=== PATIENT | female | born 1995 | race Caucasian/White ===

== ENCOUNTER 2023-09-19 07:42 | Emergency (ER) | payer BC, SELFPAY ==
--- NOTE | ~2023-09-19 | CT_ITS ---
EXAMINATION: CT abdomen pelvis w con DATE: 09/19/2023 08:57 INDICATION: Right lower quadrant pain, nausea, vomiting and diarrhea. TECHNIQUE: Computed tomography (CT) of the abdomen and pelvis was performed with 100 mL Omnipaque-350 intravenous contrast. Automated exposure control and iterative reconstruction technique were employe d. The dose-length product was 400.53 mGy-cm. COMPARISON: None FINDINGS: Mild discoid atelectasis in the left lower lobe. Heart size is normal. No pericardial or pleural effu siva. 2.2 cm low-attenuation lesion with globular peripheral regions of enhancement in the left hepat ic lobe consistent with and statistically most likely to represent a hemangioma. There are a couple a dditional subcentimeter low-attenuation right hepatic lesions also most likely representing hemangiom as. Gallbladder, spleen, pancreas, bilateral adrenal glands and kidneys are normal. Normal appendix. There is fluid in the proximal colon consistent with given history of diarrhea which is nonspecific. No bowel obstruction. Bladder is normal. The retroverted uterus is normal. Small low-attenuation like ly ovarian cysts/follicles at the bilateral adnexa, the largest on the right measuring 1.5 cm in maxi mal diameter. Small amount of likely physiologic free fluid in the cul-de-sac. No abscess or free int raperitoneal gas. No pathologically enlarged abdominal or pelvic lymphadenopathy. Bones are unremarka ble. IMPRESSION: 1. Fluid in the proximal colon consistent with nonspecific diarrhea. No other acute intra-abdominal/p elvic process with normal appendix. Reviewed, dictated and finalized at location A. IMPRESSION: 1. Fluid in the proximal colon consistent with nonspecific diarrhea. No other a cute intra-abdominal/pelvic process with normal appendix.
[2023-09-19 07:47] VITALS: BP 111/74; PULSE 74; RESP 18; TEMP 37.1; O2SAT 100
--- NOTE | 2023-09-19 08:08 | ED.ABDPAIN ---
HPI - Abdominal Pain General Chief Complaint: Abdominal Pain Stated Complaint: abdominal pain Time Seen by Provider: 09/19/23 07:47 Source: patient Mode of arrival: ambulatory Limitations: no limitations History of Present Illness HPI narrative: this is a 28-year-old female with no significant past medical history presents with severe pain diffuse location localizing to the periumbilical area and radiating to her right flank with nausea with no fever chills no chest pain or shortness. MD elicited complaint: abdominal pain Onset (ago): hour(s) Pain Consistency: constant Location: diffuse, periumbilical, R flank and suprapubic Severity: severe Pain scale (0-10): 8 Quality: aching Radiation: R flank Exacerbating factors: nothing Relieving factors: nothing Related Data Allergies Allergy/AdvReac Type Severity Reaction Status Date / Time No Known Allergies Allergy Verified 09/19/23 07:58 Review of Systems Review of Systems: All systems reviewed & are unremarkable except as noted in HPI and below PMFSH Past Medical History Medical History Patient denies medical problems Exam Const: General: no acute distress Nutritional Appearance: well nourished Orientation/consciousness: patient oriented x3 Chest: Chest palpation & inspection: normal inspection of the chest Resp: Effort & Inspection: normal respiratory effort Auscultation: clear to auscultation bilaterally Cardio: Rate: regular rate Rhythm: regular rhythm GI: GI Palp: Yes Soft to palpation and Yes Tenderness to palpation present (GI) Auscultation: normal bowel sounds : General: Yes Bladder palpation abnormal and Yes CVA tenderness Back/Spine/Pelvis: Back: CVA tenderness Skin: General skin exam: normal color Rashes: no rashes Neuro: General: patient oriented x3, moves all extremities and no meningeal signs Course Course Emergency Course: patient with abdominal pain started IV fluids and administered a dose of 30mg IV Toradol and Zofran, labs drawn and reviewed as well as urinalysis, CT scan of the abdomen pelvis were performed. Vital Signs Vital signs: Vital Signs Temperature 37.1 C 09/19/23 07:47 Pulse Rate 74 09/19/23 07:47 Respiratory Rate 18 09/19/23 07:47 Blood Pressure 111/74 09/19/23 07:47 Pulse Oximetry 100 09/19/23 07:47 Oxygen Delivery Room Air 04/13/24 07:47 Temperature 37.1 C 09/19/23 07:47 Pulse Rate 74 09/19/23 07:47 Respiratory Rate 18 09/19/23 07:47 Blood Pressure 111/74 09/19/23 07:47 Pulse Oximetry 100 09/19/23 07:47 Oxygen Delivery Room Air 09/19/23 07:47 Critical Care Time Critical Care Time Critical Care Time: No Discharge Plan Discharge Clinical Impression: Gastroenteritis UTI (urinary tract infection) Qualifiers: Urinary tract infection type: site unspecified Hematuria presence: without hematuria Qualified Code(s): N39.0 - Urinary tract infection, site not specified Patient Disposition: Home, Self-Care Condition: Stable Instructions: Antibiotic Form, Urinary Tract Infection in Women (ED), Clear Liquid Diet (ED), Gastroenteritis (ED) Additional Instructions: take medicine as prescribed and follow up with primary if symptoms persist or worsen. Prescriptions: New ondansetron 4 mg tablet,disintegrating 4 mg PO Q6H PRN (Reason: nausea and vomiting) Qty: 14 0RF nitrofurantoin monohyd/m-cryst [Macrobid] 100 mg capsule 100 mg PO Q12H 7 Days Qty: 14 0RF Rx Instructions: must administer with a meal/food Follow-up/Referrals: UNKNOWN,DOCTOR [Primary Care Provider] - Time of Disposition: 09:31
[2023-09-19] MEDS: ONDANSETRON INJ 4 MG/2 ML VIAL IV PUSH (08:15)
[2023-09-19] MEDS: KETOROLAC 30 MG/ML VIAL (*BKC) IV PUSH (08:15)
[2023-09-19] MEDS: SODIUM CHLORIDE 0.9% IV 1,000 ML 999 ML IV CONT (08:16)
[2023-09-19 08:20] LABS: Appearance Urine Clear (Clear); Basophils Absolute Auto 0.04 K/mm3 (0.00-0.10); Basophils Percent Auto 0.4 % (0.0-1.0); Bilirubin Urine Negative (Negative); Blood Urine 1+ (Negative); Color Urine Light Yellow (Yellow); Eosinophils Absolute Auto 0.13 K/mm3 (0.02-0.50); Eosinophils Percent Auto 1.3 % (1.0-6.0); Glucose Urine UA Negative (Negative); Hematocrit 42.1 % (35.0-49.0); Hemoglobin 13.8 g/dL (12.0-15.0); Immature Granulocyte Absolute 0.03 K/mm3 (0.00-0.00); Immature Granulocyte Percent A 0.3 % (0.0-0.0); Ketones Urine Negative (Negative); Leukocyte Esterase Ur Trace LEU/UL (Negative); Lymphocytes Absolute Auto 1.02 K/mm3 (1.10-4.50); Lymphocytes Percent Auto 10.5 % (18.0-42.0); Mean Corpuscular HGB Conc 32.8 g/dL (32-36); Mean Corpuscular Hemoglobin 29.9 pg (27.0-31.0); Mean Corpuscular Volume 91.3 fL (78.0-102.0); Mean Platelet Volume 10.6 fl (9.2-11.8); Monocytes Absolute Auto 0.63 K/mm3 (0.10-0.90); Monocytes Percent Auto 6.5 % (2.0-11.0); Neutrophils Absolute Auto 7.82 K/mm3 (1.70-7.20); Nitrate Urine Negative (Negative); Platelet Count Result 284 K/mm3 (150-420); Protein Urine Negative (Negative); Red Blood Count 4.61 M/mm3 (4.20-5.40); Specific Grav Ur 1.025 (1.010-1.020); Urobilinogen Urine 0.2 mg/dL (0.2-1.0); White Blood Count 9.7 K/mm3 (4.8-10.8)
[2023-09-19 08:25] LABS: Pregnancy On Board Control Positive; Urine Pregnancy Test Negative
[2023-09-19 08:36] LABS: Alanine Aminotransferase 28 U/L (14-59); Albumin Level 3.7 g/dL (3.4-5.0); Alkaline Phosphatase 121 U/L (46-116); Anion Gap 9 mmol/L (4-12); Aspartate Amino Transferase 25 U/L (15-37); Bilirubin,Total 0.4 mg/dL (0.00-1.00); Blood Urea Nitrogen 11 mg/dL (7-18); Calcium 8.8 mg/dL (8.5-10.1); Carbon Dioxide 28 mmol/L (21-32); Chloride 104 mmol/L (98-108); Estimated CRCL calculation 110 ml/min; Estimated Glomerular Filt Rate > 60; Glucose 87 mg/dL (70-99); Lipase 21 U/L (16-77); Osmolality Calculated 290 mOsm/kg (285-295); Potassium 4.2 mmol/L (3.5-5.1); Sodium 141 mmol/L (136-145)
[2023-09-19 08:38] LABS: Lactic Acid Reflex 0.7 mmol/L (0.4-2.0)
[2023-09-19 08:44] LABS: Add Urine Microscopic? YES; Bacteria Urine Trace /hpf; Squamous Epithelial Cell Urine Few /hpf (Few); WBC Urine 0-3 /hpf (0-3)
[2023-09-19 08:56] LABS: SARS-CoV-2 RNA PCR Negative (Negative)
[2023-09-19 08:57] LABS: Influenza A QL RT-PCR Negative (Negative); Influenza B QL RT-PCR Negative (Negative); RSV RNA, RT-PCR Negative (Negative)
[2023-09-19 09:41] VITALS: BP 110/72; PULSE 81; RESP 18; O2SAT 99
--- NOTE | 2023-09-25 12:49 | PC.NURSE ---
Final blood culture report: no growth after 5 days. no further action or treatment needed.
== END 2023-09-19 09:52 | disposition home or self-care (01) ==
PROVIDERS: Emergency Provider Emergency Medicine
DX: K52.9 Noninfective gastroenteritis and colitis, unspecified (principal); N39.0 Urinary tract infection, site not specified; Z20.822 Contact with and (suspected) exposure to COVID-19
CPT/HCPCS: 36415; 74177; 80053; 81001; 81025; 83605; 83690; 85025; 87040; 87637; 96361; 96374; 96375; 99284; J1885; J2405; J7030; Q9967

== ENCOUNTER 2024-09-09 17:18 | Emergency (ER) | payer OTHER, SELFPAY ==
--- NOTE | ~2024-09-09 | CT_ITS ---
History: Syncope. Left-sided headache PROCEDURE: CT head without contrast. COMPARISON: None TECHNIQUE: Axial imaging of the head performed from the skull base to the vertex without IV contrast. Sagittal a nd coronal reformations obtained. DLP: 605 mGy-cm FINDINGS: The ventricles are normal in size, shape and position. There is no mass, mass effect or midline shift. There is no abnormal extra-axial fluid collection or intracranial hemorrhage. Visualized paranasal sinuses are clear. The mastoid air cells are well aerated. No acute displaced fractures within the overlying cranium. Impression: No acute intracranial hemorrhage or suspicious mass effect. Reviewed, dictated and finalized at location A. Impression: No acute intracranial hemorrhage or suspicious mass effect.
[2024-09-09 17:18] VITALS: BP 127/92; PULSE 88; RESP 18; TEMP 36.3; O2SAT 99
--- NOTE | 2024-09-09 17:23 | ECG_ITS ---
Test Date: 2024-09-12 08:54:55 Measurements Intervals [place] Rate: P: AL: QRS: QRSD: T: QT: QTc: Interpretive Statements SINUS RHYTHM POSSIBLE LEFT ATRIAL ENLARGEMENT INCOMPLETE RIGHT BUNDLE BRANCH BLOCK BORDERLINE ECG Electronically Signed On 09-12-2024 09:14:44 CDT by Suleiman Haley D.O.
--- NOTE | 2024-09-09 17:23 | ED.SYNCOPE ---
HPI - Syncope General Chief Complaint: Syncope Stated Complaint: passed out Time Seen by Provider: 09/09/24 17:23 Source: patient Mode of arrival: ambulatory Limitations: no limitations History of Present Illness HPI narrative: patient is a 29-year-old female with syncopal episode after giving plasma today. She normally gives plasma once to twice a week but this time she had a syncopal episode a few hours after giving plasma. She was on her knees and collapsed. It was for brief few seconds. No other symptoms. Her pressure was a little bit low before giving plasma. She also had a tick bite a few weeks ago that she is monitoring and has not been treated at this point yet. possible hypoglycemia. complaint: loss of consciousness and collapsed Onset (ago): hour(s) ( Three) -: second(s) Description of event: other ( patient had given plasmapheresis and further had a collapse and syncopal episode) Prodromal symptoms: none Witnessed: No ( her was in the other room and came to check on her and brought her to the ER for further evaluation) Context: at rest Injuries sustained associated with event: none Current symptoms: none and back to baseline History: other ( 1st event) Treatments prior to arrival: none Related Data Allergies Allergy/AdvReac Type Severity Reaction Status Date / Time No Known Allergies Allergy Verified 09/09/24 17:26 Review of Systems Review of Systems: All systems reviewed & are unremarkable except as noted in HPI and below Constitutional: Constitutional: Reports no additional constitutional complaints Eyes: Eyes: Reports no additional eye complaints ENT: Reports system reviewed and no additional complaints, except as documented Cardiovascular: Cardiovascular: Reports no additional cardiovascular complaints Respiratory: Respiratory: Reports no additional respiratory complaints Gastrointestinal: Gastrointestinal: Reports no additional gastrointestinal complaints Genitourinary: Genitourinary: Reports no additional female genitourinary complaints Musculoskeletal: Musculoskeletal: Reports no additional musculoskeletal complaints Integumentary/Breasts: Skin/Breast: Reports system reviewed and no additional complaints, except as docu Neurologic: Reports system reviewed and no additional complaints, except as documented Psychiatric: Psychiatric: Reports no additional psychiatric complaints Endocrine: Endocrine: Reports no additional endocrine complaints Hematologic/Lymphatic: Hematologic/Lymphatic: Reports no additional hematologic/lymphatic complaints Allergic/Immunologic: Allergic/Immunologic: Reports no additional allergic/immunologic complaints PMFSH Past Medical History Medical History Patient denies medical problems Exam Const: General: healthy appearing Nutritional Appearance: well nourished Orientation/consciousness: patient oriented x3 Limitations: no limitations HENMT: Head: normal to inspection Ears: external ears normal Face/Nose/Sinus: Normal external nose present Eyes: Conjunctivae: conjunctivae normal Pupils: Equal, round and reactive pupils present EOM: EOMs intact bilaterally Neck: Neck: normal visual inspection Chest: Chest palpation & inspection: normal inspection of the chest Resp: Effort & Inspection: normal respiratory effort and not labored Auscultation: clear to auscultation bilaterally and no crackles Cardio: Rate: regular rate Rhythm: regular rhythm Heart sounds: no murmurs GI: Inspection: non-distended GI Palp: Yes Soft to palpation and No Tenderness to palpation present (GI) Auscultation: normal bowel sounds : General: Yes bladder normal to palpation Back/Spine/Pelvis: Back: no CVA tenderness Skin: General skin exam: normal color Rashes: rash noted Wounds: no wounds Other: left breast examined by myself and female nurse Yissel shows a small erythema circular area at the 4 o'clock position with a nodularity nidus from the tick; it does not have the typical Lyme disease appearance Neuro: General: patient oriented x3, moves all extremities, no meningeal signs, no focal motor deficits and CN's II-XI intact bilaterally Cranial nerves: Yes Nystagmus not present Speech: normal speech Gait exam (Neuro): Normal gait present Extrem: General: normal to inspection Psych: Mental Status: mental status grossly normal Affect: normal affect Attitude: cooperative Course Vital Signs Vital signs: Vital Signs Temperature 36.3 C L 09/09/24 17:18 Pulse Rate 88 09/09/24 17:18 Respiratory Rate 18 09/09/24 17:18 Blood Pressure 127/92 H 09/09/24 17:18 Pulse Oximetry 99 09/09/24 17:18 Oxygen Delivery Room Air 09/09/24 17:18 Temperature 36.3 C L 09/09/24 17:18 Pulse Rate 72 09/09/24 19:23 Respiratory Rate 18 09/09/24 19:23 Blood Pressure 103/76 09/09/24 19:23 Pulse Oximetry 97 09/09/24 19:23 Oxygen Delivery Room Air 09/09/24 19:23 MDM - Syncope MDM Narrative Medical decision making narrative: Patient is a 29-year-old female with a syncope and collapse event after plasmapheresis given today. We will do a workup at this time. It sounded like she had a vasovagal or hypoglycemic event. She was also low blood pressure before plasmapheresis. Lab Data Attestation: I reviewed the patient's lab results. 09/09/24 17:50 09/09/24 17:50 Labs: Lab Results 09/09/24 09/09/24 Range/Units 17:50 19:14 WBC 10.6 (4.8-10.8) K/mm3 RBC 4.79 (4.20-5.40) M/mm3 Hgb 14.4 (12.0-15.0) g/dL Hct 44.3 (35.0-49.0) % MCV 92.5 (78.0-102.0) fL MCH 30.1 (27.0-31.0) pg MCHC 32.5 (32-36) g/dL RDW 13.4 (11.6-14.4) % Plt Count 305 (150-420) K/mm3 MPV 10.4 (9.2-11.8) fl Immature Gran % (Auto) 0.4 H (0.0-0.0) % Neut % (Auto) 59.6 (50.0-70.0) % Lymph % (Auto) 30.9 (18.0-42.0) % Meagher % (Auto) 6.6 (2.0-11.0) % Eos % (Auto) 2.0 (1.0-6.0) % Baso % (Auto) 0.5 (0.0-1.0) % Lymph # (Auto) 3.28 (1.10-4.50) K/mm3 Meagher # (Auto) 0.70 (0.10-0.90) K/mm3 Eos # (Auto) 0.21 (0.02-0.50) K/mm3 Baso # (Auto) 0.05 (0.00-0.10) K/mm3 Abs Immat Gran (auto) 0.04 H (0.00-0.00) K/mm3 Absolute Neuts (auto) 6.35 (1.70-7.20) K/mm3 Absolute Nucleated RBC 0.00 (0.00-0.00) K/mm3 Nucleated RBC % 0.0 (0-0.0) % Sodium 142 (136-145) mmol/L Potassium 3.9 (3.5-5.1) mmol/L Chloride 108 (98-108) mmol/L Carbon Dioxide 28 (21-32) mmol/L Anion Gap 6 (4-12) mmol/L BUN 10 (7-18) mg/dL Creatinine 0.78 (0.55-1.02) mg/dL Estim Creat Clear Calc 87 ml/min Estimated GFR > 60 (59 - ) Glucose 100 H (70-99) mg/dL Calculated Osmolality 293 (285-295) mOsm/kg Calcium 8.0 L (8.5-10.1) mg/dL Total Bilirubin 0.2 (0.00-1.00) mg/dL AST 17 (15-37) U/L ALT 25 (14-59) U/L Alkaline Phosphatase 74 (46-116) U/L Troponin I < 4.0 (0.00-60.4) ng/L Total Protein 5.5 L (6.4-8.2) g/dL Albumin 2.8 L (3.4-5.0) g/dL Lyme IgG 18 kDa Band Pending Lyme IgG 23 kDa Band Pending Lyme IgG 28 kDa Band Pending Lyme IgG 30 kDa Band Pending Lyme IgG 39 kDa Band Pending Lyme IgG 41 kDa Band Pending Lyme IgG 45 kDa Band Pending Lyme IgG 58 kDa Band Pending Lyme IgG 66 kDa Band Pending Lyme IgG 93 kDa Band Pending Lyme IgG Ab (Immblot) Pending Lyme IgM Ab (Immblot) Pending Lyme IgM 23 kDa Band Pending Lyme IgM 39 kDa Band Pending Lyme IgM 41 kDa Band Pending Imaging Data Attestation: I personally reviewed and interpreted this imaging study as follows: Radiologist's impression: CT scan of the head was negative for acute process ECG Data EKG #1: Attestation: I personally reviewed and interpreted this ECG as follows: ECG completion date: 09/09/24 ECG completion time: 21:39 EKG Interpretation: normal rate, sinus rhythm, no ectopy, no ST changes, normal QRS, normal QT, NL axis and no acute changes Discharge Plan Discharge Clinical Impression: Syncope and collapse, Vasovagal syncope, Hypoglycemia Tick bite Qualifiers: Encounter type: initial encounter Site of tick bite: female external genital organs Site of tick bite of female external genital organ: unspecified female external genital organ Qualified Code(s): S30.866A - Insect bite (nonvenomous) of unspecified external genital organs, female, initial encounter; W57.XXXA - Bitten or stung by nonvenomous insect and other nonvenomous arthropods, initial encounter Patient Disposition: Home, Self-Care Condition: Stable Instructions: Syncope (DC) Additional Instructions: please follow-up with the primary doctor in the next week. Your Lyme disease test are pending at this time. I have given you Lyme disease treatment at this time. Patient Language: [place] Prescriptions: New doxycycline monohydrate 100 mg capsule 100 mg PO BID 15 Days Qty: 30 0RF No Action ondansetron 4 mg tablet,disintegrating 4 mg PO Q6H PRN (Reason: nausea and vomiting) Qty: 14 0RF nitrofurantoin monohyd/m-cryst [Macrobid] 100 mg capsule 100 mg PO Q12H 7 Days Qty: 14 0RF Rx Instructions: must administer with a meal/food Follow-up/Referrals: Woody Meraz MD [Primary Care Provider] - Time of Disposition: 19:16
[2024-09-09 17:54] LABS: Basophils Absolute Auto 0.05 K/mm3 (0.00-0.10); Basophils Percent Auto 0.5 % (0.0-1.0); Eosinophils Absolute Auto 0.21 K/mm3 (0.02-0.50); Hematocrit 44.3 % (35.0-49.0); Hemoglobin 14.4 g/dL (12.0-15.0); Immature Granulocyte Absolute 0.04 K/mm3 (0.00-0.00); Immature Granulocyte Percent A 0.4 % (0.0-0.0); Lymphocytes Absolute Auto 3.28 K/mm3 (1.10-4.50); Lymphocytes Percent Auto 30.9 % (18.0-42.0); Mean Corpuscular HGB Conc 32.5 g/dL (32-36); Mean Corpuscular Hemoglobin 30.1 pg (27.0-31.0); Mean Corpuscular Volume 92.5 fL (78.0-102.0); Mean Platelet Volume 10.4 fl (9.2-11.8); Monocytes Percent Auto 6.6 % (2.0-11.0); Neutrophils Absolute Auto 6.35 K/mm3 (1.70-7.20); Neutrophils Percent Auto 59.6 % (50.0-70.0); Platelet Count Result 305 K/mm3 (150-420); Red Blood Count 4.79 M/mm3 (4.20-5.40); Red Cell Distribution Width 13.4 % (11.6-14.4); White Blood Count 10.6 K/mm3 (4.8-10.8)
[2024-09-09 18:00] VITALS: BP 107/69; PULSE 72; RESP 17; O2SAT 99
[2024-09-09 18:18] LABS: Alanine Aminotransferase 25 U/L (14-59); Albumin Level 2.8 g/dL (3.4-5.0); Alkaline Phosphatase 74 U/L (46-116); Anion Gap 6 mmol/L (4-12); Aspartate Amino Transferase 17 U/L (15-37); Bilirubin,Total 0.2 mg/dL (0.00-1.00); Blood Urea Nitrogen 10 mg/dL (7-18); Carbon Dioxide 28 mmol/L (21-32); Chloride 108 mmol/L (98-108); Estimated CRCL calculation 87 ml/min; Estimated Glomerular Filt Rate > 60; Glucose 100 mg/dL (70-99); Osmolality Calculated 293 mOsm/kg (285-295); Potassium 3.9 mmol/L (3.5-5.1); Sodium 142 mmol/L (136-145); Total Protein 5.5 g/dL (6.4-8.2); Troponin I < 4.0 ng/L (0.00-60.4)
[2024-09-09 18:30] VITALS: BP 105/70; PULSE 85; RESP 17; O2SAT 99
[2024-09-09 19:00] VITALS: BP 103/76; PULSE 84; RESP 17; O2SAT 99
--- NOTE | 2024-09-09 19:00 | PC.NURSE ---
ASSUMED CARE. REPORT RECEIVED FROM SHANIA STUBBS
--- NOTE | 2024-09-09 19:17 | PC.NURSE ---
PATIENT IS RESTING ON STRETCHER WITH FAMILY MEMBER IN THE ROOM. STATES SHE IS FEELING BETTER. DENIES ANY NEEDS AT THIS TIME. CALL LIGHT IS IN REACH
[2024-09-09 19:23] VITALS: BP 103/76; PULSE 72; RESP 18; O2SAT 97
== END 2024-09-09 19:28 | disposition home or self-care (01) ==
PROVIDERS: Emergency Provider Emergency Medicine; PCP Internal Medicine
DX: S30.866A Insect bite (nonvenomous) of unspecified external genital organs, female, initial encounter (principal); R55 Syncope and collapse; E16.2 Hypoglycemia, unspecified; W57.XXXA Bitten or stung by nonvenomous insect and other nonvenomous arthropods, initial encounter
CPT/HCPCS: 36415; 70450; 80053; 84484; 85025; 86617; 93005; 99284

== ENCOUNTER 2024-10-03 09:01 | Outpatient (CLI) | payer OTHER, SELFPAY ==
--- NOTE | ~2024-10-03 | XR_ITS ---
XR chest 2V Ordering provider: Summer Alfaro, CERTIFIED HEALTH EDUCATION SPECIALIST History: 29 years Female with . palpitations/syncope episodes x2,hypotension . Comparison: None. FINDINGS: MEDIASTINUM: The cardiac silhouette is not enlarged. Device projected over the left hemithorax. LUNGS: No infiltrates, effusions or pneumothorax. OTHER: No free air under the diaphragm. IMPRESSION: No acute cardiopulmonary pathology. Reviewed, dictated and finalized at location A.
--- NOTE | 2024-10-24 08:48 | P.PCNHOL_ITS ---
Holter/Event Monitor Holter/Event Monitor Date of procedure: 10/03/24 Holter/Event Procedure: Event Monitor Indications: Palpitations Conclusion: 1. 14 days event monitor on 10/03/24. 2. Underlying rhythm is sinus rhythm. HR range 47-158 bpm; average HR 86 bpm. HR at 47 bpm was on 10/16/24 at 7:34 am. 3. There are rare premature supraventricular complexes. No supraventricular tachycardia. 4. There are rare premature ventricular complexes. No ventricular tachycardia. 5. No significant pauses greater than 3 seconds. 6. Patient reports 3 episodes of symptoms of lightheadedness, irregular beats, chest pain, shortness of breath, flutter demonstrate sinus rhythm, HR range 78- 100 bpm.
== END 2024-10-03 09:02 | disposition home or self-care (01) ==
PROVIDERS: PCP Internal Medicine; Visit Provider Nurse Practitioner Family
DX: R00.2 Palpitations (principal); R55 Syncope and collapse; R63.5 Abnormal weight gain; R51.9 Headache, unspecified
CPT/HCPCS: 71046; 93246

== ENCOUNTER 2024-11-08 13:34 | Outpatient (CLI) | payer OTHER, SELFPAY ==
--- NOTE | 2024-11-08 13:39 | ECHO_ITS ---
Patient Info Name: Mayela Grande Age: 29 years : 1995 Gender: Female Ht: 66 in Wt: 165 lbs BSA: 1.88 m2 HR: 86 bpm BP: 121 / 82 mmHg Heart Rhythm: Sinus Rhythm Technical Quality: Good Exam Date: 11/08/2024 1:47 PM Patient Status: O Admit Date: 11/08/2024 Exam Type: CA echo doppler color flow Complete two-dimensional, color flow and Doppler transthoracic echocardiogram is performed. Supervisor Final: Nelli Mederos Attending Provider: Summer Alfaro Summary 1. Complete two-dimensional, color flow and Doppler transthoracic echocardiogram is performed. 2. Left ventricular chamber dimension is normal. 3. Left ventricular systolic function is normal, estimated at 55-60. 4. The left ventricular diastolic function is normal. 5. E/e' 4 is not elevated. 6. There is mild aortic valve regurgitation. 7. No pulmonary hypertension, estimated pulmonary arterial systolic pressure is 25 mmHg. 8. There is trace pulmonic regurgitation. Left Ventricle E/e' 4 is not elevated. Left ventricular chamber dimension is normal. Left ventricular systolic function is normal, estimated at 55-60. The left ventricular diastolic function is normal. Right Ventricle Right ventricular chamber dimension is normal. Right ventricular systolic function is normal and with normal TAPSE 2.4 cm. Left Atria Left atrial chamber dimension is normal. Right Atria Right atrial chamber dimension is normal. Aortic Valve The aortic valve is trileaflet. There is no aortic valve stenosis. There is mild aortic valve regurgitation. Pulmonic Valve There is trace pulmonic regurgitation. Mitral Valve There is no mitral valve stenosis. There is no mitral valve regurgitation. Tricuspid Valve There is no tricuspid valve regurgitation. No pulmonary hypertension, estimated pulmonary arterial systolic pressure is 25 mmHg. Pericardium/Pleural There is no pericardial effusion. Inferior Vena Cava Normal inferior vena cava with >50% collapse upon inspiration consistent with normal right atrial pressure, 5 mmHg. Aorta The aortic root size at the sinus of Valsalva is normal. Left Ventricular Outflow Tract Name Value Normal LVOT 2D LVOT Diameter 2.1 cm LVOT Doppler LVOT Peak Velocity 105 cm/s LVOT Peak Gradient 4 mmHg LVOT Mean Gradient 2 mmHg LVOT VTI 19 cm LVOT VTI/AV VTI Ratio 0.8 LVOT Stroke Volume 65 ml LVOT CO 5.3 l/min LVOT CI 2.8 l/min/m2 Pulmonic Valve Name Value Normal PV Doppler PV Peak Velocity 110 cm/s PV Peak Gradient 5 mmHg Mitral Valve Name Value Normal MV Diastolic Function MV E Peak Velocity 88 cm/s MV A Peak Velocity 58 cm/s MV E/A 1.5 MV Decel Time (PW) 249 ms MV Annular TDI MV E/e' (Septal) 5.0 MV E/e' (Lateral) 4.0 MV E/e' (Average) 4.5 Tricuspid Valve Name Value Normal TV Regurgitation Doppler TR Peak Velocity 223 cm/s TR Peak Gradient 20 mmHg Estimated PAP/RSVP RA Pressure 5 mmHg <=5 PA Systolic Pressure 25 mmHg <36 RV Systolic Pressure 25 mmHg <36 TV Annular TDI TV Lateral Nila s' Velocity 12.2 cm/s >=9.5 Aortic Valve Name Value Normal AV Doppler AV Peak Velocity 132 cm/s AV Peak Gradient 7 mmHg AV Mean Gradient 4 mmHg AV VTI 24 cm AV Area (Cont Eq VTI) 2.7 cm2 >=3.0 AV Area (Cont Eq Beny) 2.7 cm2 AV DI (Beny) 0.80 AV Regurgitation 2D LVOT Area 3.4 cm2 Ventricles Name Value Normal LV Dimensions 2D/MM IVS Diastolic Thickness (2D) 0.7 cm 0.6-1.0 LVID Diastole (2D) 4.3 cm 3.8-5.2 LVIW Diastolic Thickness (2D) 0.8 cm 0.6-0.9 LVID Systole (2D) 3.2 cm 2.2-3.5 LVOT Diameter 2.1 cm LV Mass (2D Cubed) 98.23 g 67.00-162.00 LV Mass Index (2D Cubed) 52 g/m2 43-95 Relative Wall Thickness (2D) 0.37 <=0.42 LV Fractional Shortening/Ejection Fraction 2D/MM LV Fractional Shortening (2D) 26 % 27-45 LV EF (2D Teichholz) 52 % LV Diastolic Volume (4C MOD) 81 ml LV EF (4C MOD) 68 % LV Diastolic Volume (2C MOD) 87 ml LV EF (2C MOD) 63 % LV Diastolic Volume (BP MOD) 86 ml 46-106 LV Diastolic Volume Index (BP MOD) 46 ml/m2 29-61 LV Systolic Volume (BP MOD) 31 ml 14-42 LV Systolic Volume Index (BP MOD) 16 ml/m2 8-24 LV EF (BP MOD) 65 % 54-74 LV Diastolic Length (4C) 8.2 cm LV Systolic Length (4C) 6.3 cm LV Stroke Volume (4C MOD) 55 ml Atria Name Value Normal LA Dimensions LA Volume (4C A-L) 36 ml LA Volume (BP A-L) 39 ml RA Dimensions RA Systolic Major [place] Length (4C) 3.9 cm 2.2-2.8 RA Area (4C) 11.8 cm2 <=18.0 Report Signatures
== END 2024-11-08 13:35 | disposition home or self-care (01) ==
PROVIDERS: PCP Internal Medicine; Visit Provider Nurse Practitioner Family
DX: R00.2 Palpitations (principal); R55 Syncope and collapse; R63.5 Abnormal weight gain; R51.9 Headache, unspecified; I35.1 Nonrheumatic aortic (valve) insufficiency
CPT/HCPCS: 93306

== ENCOUNTER 2025-03-03 08:17 | Outpatient (CLI) | payer BC, SELFPAY ==
--- NOTE | ~2025-03-03 | MMUS_ITS ---
EXAMINATION: MM diagnostic herrera RT w jose l, US breast RT limited INDICATION: 29-year old female; presents for evaluation of palpable area in the right lower inner quadrant which she cannot identify on today's examination. COMPARISON: None available TECHNIQUE: Digital breast tomosynthesis CC and MLO views of the RIGHT breast and True lateral and spot compression of the RIGHT breast were obtained with computer-aided detection to assist in interpretation of the study. MAMMOGRAM FINDINGS: The breasts are extremely dense, which lowers the sensitivity of mammography. An asymmetry seen on the cc view in the medial at posterior depth which correlates to the general area of patient's palpable lump persists as a mass on spot compression views. There are no other suspicious masses, calcifications, architectural distortion or any other abnormality. RIGHT BREAST ULTRASOUND FINDINGS: There is sonographic abnormality that correlates to the area of palpable. IMPRESSION: A mass seen in the medial right breast at posterior depth in the general area of patient's palpable lump has no sonographic correlate. This lesion is best characterized as probably benign and short-term follow-up is advised. RECOMMENDATION: 3 month follow-up diagnostic right mammogram. For evaluation of patient's palpable lump should be based on clinical impression. If patient has elevated lifetime risk of breast cancer, consideration should be given to high risk screening bilateral breast MRI. BI-RADS 3, PROBABLY BENIGN Reviewed, dictated and finalized at location C. IMPRESSION: A mass seen in the medial right breast at posterior depth in the general area o f patient's palpable lump has no sonographic correlate. This lesion is best jonas racterized as probably benign and short-term follow-up is advised. RECOMMENDATION: 3 month follow-up diagnostic right mammogram. For evaluation of patient's palpable lump should be based on clinical impressio n. If patient has elevated lifetime risk of breast cancer, consideration should be given to high risk screening bilateral breast MRI. BI-RADS 3, PROBABLY BENIGN
== END 2025-03-03 08:18 | disposition home or self-care (01) ==
LOC: CHSIMG 08:20
PROVIDERS: PCP Internal Medicine; Visit Provider Nurse Practitioner Family
DX: N63.11 Unspecified lump in the right breast, upper outer quadrant (principal)
CPT/HCPCS: 76642; 77061; 77065; G0279